=== PATIENT | male | born 1975 | race African-American/Black ===

== ENCOUNTER 2017-12-20 08:25 | Inpatient (IN) | payer OTHER ==
[2017-12-20 08:47] VITALS: BMI 23.9
--- NOTE | 2017-12-20 08:56 | HP ---
CIWA Score - CIWA Score Nausea/Vomitin Muscle Tremors: 3 Anxiety: 3 Agitation: 3 Paroxysmal Sweats: 2 Orientation: 0-Oriented Tacttile Disturbances: 2-Mild Itch/Numbness/Burn Auditory Disturbances: 2-Mild Harshness/Frighten Visual Disturbances: 2-Mild Sensitivity Headache: 2-Mild CIWA-Ar Total Score: 22 Admission ROS BHS - HPI Chief Complaint: I AM HERE TO STOP DRINKING ALCOHOL,COCAINE AND K2 Allergies/Adverse Reactions: Allergies Allergy/AdvReac Type Severity Reaction Status Date / Time No Known Allergies Allergy Verified 12/20/17 08:36 History of Present Illness: THIS 42 YEARS OLD BLACK MALE WITH ALCOHOL,COCAINE 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 DEPENDENCE.SEEKING DETOX,WITHDRAWAL SYMPTOM,LAST DETOX 07/26 [facility] NOT COMPLETED NO MAJOR MEDICAL PROBLEM NICOTINE DEPENDENCE NO SIGNIFICANT PERIOD OF SOBRIETY SEVERAL ADMISSIONS IN DETOX ANXIETY,DEPRESSION,INSOMNIA,PARANOID Exam Limitations: No Limitations - Ebola screening Have you traveled outside of the country in the last 21 days: No Have you been sick,other than usual withdrawal symptoms: No - Review of Systems Constitutional: Loss of Appetite, Malaise, Night Sweats, Changes in sleep, Weakness EENT: reports: Nose Congestion Respiratory: reports: No Symptoms reported Cardiac: reports: No Symptoms Reported GI: reports: Diarrhea, Nausea, Vomiting, Abdominal cramping : reports: No Symptoms Reported Musculoskeletal: reports: Back Pain, Muscle Pain Integumentary: reports: Dryness Neuro: reports: Headache, Tremors Endocrine: reports: No Symptoms Reported Hematology: reports: No Symptoms Reported Psychiatric: reports: Anxious, Depressed (INSOMNIA) Patient History - Patient Medical History Hx Anemia: No Hx Asthma: No Hx Chronic Obstructive Pulmonary Disease (COPD): No Hx Cancer: No Hx Cardiac Disorders: No Hx Hypertension: No Hx Hypercholesterolemia: No Hx Pacemaker: No HX Cerebrovascular Accident: No Hx Seizures: No Hx Dementia: No Hx Diabetes: No Hx Gastrointestinal Disorders: No Hx Liver Disease: No Hx Genitourinary Disorders: No Hx Sexually Transmitted Disorders: No Hx Renal Disease (ESRD): No Hx Thyroid Disease: No Hx Human Immunodeficiency Virus (HIV): No (LAST 07/26 ) Hx Hepatitis C: No Hx Depression: Yes (taking Abilify and trazodone ) Hx Suicide Attempt: Yes (Tried to overdose in 2009) Hx Schizophrenia: No Other Medical History: NO SUICIDAL,NO HOMICIDAL - Patient Surgical History Past Surgical History: No Hx Neurologic Surgery: No Hx Cataract Extraction: No Hx Cardiac Surgery: No Hx Lung Surgery: No Hx Breast Surgery: No Hx Breast Biopsy: No Hx Abdominal Surgery: No Hx Appendectomy: No Hx Cholecystectomy: No Hx Genitourinary Surgery: No Hx Section: No Hx Orthopedic Surgery: No Anesthesia Reaction: No - PPD History Previous Implant?: Yes Documented Results: Negative w/o proof Date: 01/12/16 Results: 0 mm PPD to be Administered?: Yes - Smoking Cessation Smoking history: Current every day smoker Have you smoked in the past 12 months: Yes Aproximately how many cigarettes per day: 20 Hx Chewing Tobacco Use: No Initiated information on smoking cessation: Yes 'Breaking Loose' booklet given: 12/20/17 - Substance & Tx. History Hx Alcohol Use: Yes Hx Substance Use: Yes Substance Use Type: Alcohol, Cocaine Hx Substance Use Treatment: Yes ([facility] 07/26 NOT COMPLETED) - Substances Abused Alcohol Route: Oral Frequency: Daily Amount used: LIQUOR- 2 PINTS VODKA Age of first use: 12 Date of Last Use: 12/19/17 Cocaine Route: Smoking Frequency: Daily Amount used: 40$ Age of first use: 13 Date of Last Use: 12/19/17 K2 Route: Smoking Frequency: Daily Amount used: 10$ Age of first use: 37 Date of Last Use: 12/19/17 Family Disease History - Family Disease History Family Disease History: Heart Disease: Father (), Mother (alcohol dependency ), Respiratory: Mother, Other: Mother Admission Physical Exam BHS - Vital Signs Vital Signs: Vital Signs - 24 hr 12/20/17 08:45 Temperature 96.7 F L Pulse Rate 81 Respiratory 20 Rate Blood Pressure 144/85 - Physical General Appearance: Yes: Moderate Distress, Tremorous, Irritable, Sweating, Anxious HEENTM: Yes: Normal ENT Inspection, Normocephalic, OUMAR, Pharynx Normal Respiratory: Yes: Lungs Clear, Normal Breath Sounds, No Respiratory Distress Neck: Yes: Within Normal Limits, Supple, Trachea in good position Breast: Yes: Within Normal Limits Cardiology: Yes: Within Normal Limits, Regular Rhythm, Regular Rate, S1, S2 Abdominal: Yes: Within Normal Limits, Normal Bowel Sounds, Non Tender, Flat, Soft Genitourinary: Yes: Within Normal Limits Back: Yes: Muscle Spasm Musculoskeletal: Yes: Back pain, Muscle Pain Extremities: Yes: Tremors Neurological: Yes: rock loader II-XII NML intact, Fully Oriented, Alert, Motor Strength 5/5 Integumentary: Yes: Within Normal Limits, Dry - Diagnostic (1) Alcohol dependence with uncomplicated withdrawal Current Visit: No Status: Chronic (2) Cocaine dependence with withdrawal Current Visit: No Status: Acute (3) Nicotine dependence Current Visit: No Status: Acute (4) Insomnia secondary to depression with anxiety Current Visit: Yes Status: Acute Cleared for Admission [facility] - Detox or Rehab [facility] Level of Care: Medically Managed Detox Regimen/Protocol: Librium [facility] Breath Alcohol Content Breath Alcohol Content: 0 Urine Drug Screen - Results Drug Screen Negative: No Urine Drug Screen Results: SERENA-Cocaine
[2017-12-20] MEDS ORDERED: ACETAMINOPHEN 325 MG TABLET (FP) PO PRN (09:06)
[2017-12-20] MEDS ORDERED: P-EPHED 60MG/TRIPROLIDI 2.5MG TABLET PO PRN (09:06)
[2017-12-20] MEDS ORDERED: NICOTINE POLACRILEX 4 MG GUM BUC PRN (09:06)
[2017-12-20] MEDS ORDERED: chlordiazePOXIDE HCL 25 MG CAPSULE PO PRN (09:06)
[2017-12-20] MEDS ORDERED: MAG HYDROX/AL HYDROX/SIMETH 30 ML UNIT-DOSE CUP PO PRN (09:06)
[2017-12-20] MEDS ORDERED: chlordiazePOXIDE HCL 25 MG CAPSULE PO ONE ×2 (09:06→12:00)
[2017-12-20] MEDS ORDERED: MENTHOL/PHENOL 1 EACH UD MM PRN (09:06)
[2017-12-20] MEDS ORDERED: LOPERAMIDE HCL 2 MG CAPSULE PO PRN (09:06)
[2017-12-20] MEDS ORDERED: guaiFENesin/D-METHORPHAN HB 10 ML UNIT-DOSE CUPS PO PRN (09:06)
[2017-12-20] MEDS ORDERED: hydrOXYzine PAMOATE 50 MG CAPSULE (FP) PO PRN (09:06)
[2017-12-20] MEDS ORDERED: MAGNESIUM CITRATE 300 ML BOTTLE PO PRN (09:06)
[2017-12-20] MEDS ORDERED: MAGNESIUM HYDROX 2400MG/30ML ORAL SUSPENSION 30 ML CUP PO PRN (09:06)
[2017-12-20] MEDS ORDERED: IBUPROFEN 400 MG TABLET (FP) PO PRN (09:06)
[2017-12-20] MEDS: NICOTINE 21 MG/24 HOURS TOPICAL PATCH TD SCH (12:03)
[2017-12-20] MEDS: PRENATAL VITAMINS W/ FOLIC ACID TABLET (FP) PO SCH (12:04)
[2017-12-20] MEDS: chlordiazePOXIDE HCL 25 MG CAPSULE PO SCH ×2 (17:42→22:31)
[2017-12-20 19:21] LABS: URINE APPEARANCE CLEAR; URINE BILIRUBIN NEGATIVE (NEGATIVE); URINE BLOOD NEGATIVE (NEGATIVE); URINE COLOR STRAW; URINE GLUCOSE (UA) NEGATIVE (NEGATIVE); URINE KETONE NEGATIVE (NEGATIVE); URINE LEUK ESTERASE NEGATIVE (NEGATIVE); URINE NITRITE NEGATIVE (NEGATIVE); URINE PROTEIN NEGATIVE (NEGATIVE); URINE UROBILINOGEN NEGATIVE mg/dL (0.2-1.0)
[2017-12-20] MEDS ORDERED: THIAMINE HCL 100 MG TABLET (FP) PO SCH (22:00)
[2017-12-21] MEDS: chlordiazePOXIDE HCL 25 MG CAPSULE PO SCH ×2 (05:51→11:09)
--- NOTE | 2017-12-21 07:32 | CONSULT ---
[facility] Psychiatric Consult - Data Date of interview: 12/21/17 Admission source: [facility] Identifying data: THIS 42 YEARS OLD BLACK MALE WITH ALCOHOL,COCAINE AND K2 DEPENDENCE.SEEKING DETOX, WITH PSYCHIATRIC HOSPITALIZATION HISTORY, INTOXICATED WITH: Alcohol, Cocaine, JK-2, Nicotine Substance Abuse History: Smoking Cessation. Smoking history: Current every day smoker. Have you smoked in the past 12 months: Yes. Aproximately how many cigarettes per day: 20. Hx Chewing Tobacco Use: No. Initiated information on smoking cessation: Yes. 'Breaking Loose' booklet given: 12/20/17. - Substance & Tx. History. Hx Alcohol Use: Yes. Hx Substance Use: Yes. Substance Use Type : Alcohol, Cocaine. Hx Substance Use Treatment: Yes ([facility] 07/26 NOT COMPLETED). - Substances Abused. Alcohol. Route: Oral. Frequency: Daily. Amount used: LIQUOR- 2 PINTS VODKA. Age of first use: 12. Date of Last Use: 12/19/17. Cocaine. Route: Smoking. Frequency: Daily. Amount used: 40$. Age of first use: 13. Date of Last Use: 12/19/17. K2. Route: Smoking. Frequency: Daily. Amount used: 10$. Age of first use: 37. Date of Last Use: 12/19/17 Medical History: Denioes any significant medical issues Psychiatric History: Patient reports history of depression and anxiety, with most recent posychiatric admission on 2018 at [facility] due to suicidal ideationl, current;y taking: Trazodone 100mg po qhs. Abilify 10mg poqd Physical/Sexual Abuse/Trauma History: Denies Additional Comment: Trazodone 100mg po qhs. Abilify 10mg poqd Mental Status Exam - Mental Status Exam Alert and Oriented to: Person Cognitive Function: Fair Patient Appearance: Unkempt Mood: Sad Affect: Flat Patient Behavior: Sedated Speech Pattern: Delayed Voice Loudness: Mildly Soft/Quiet Thought Process: Circumstantial Thought Disorder: Being Controlled Hallucinations: Denies Suicidal Ideation: Denies Homicidal Ideation: Denies Insight/Judgement: Fair Sleep: Difficulty falling asleep Appetite: Fair Muscle strength/Tone: Mild Hypotonicity Gait/Station: Shuffling Additional Comments: Trazodone 100mg po qhs. Abilify 10mg poqd Psychiatric Findings - Problem List ([place] 1, 2,3) (1) Insomnia secondary to depression with anxiety Current Visit: Yes Status: Acute (2) Alcohol dependence Current Visit: No Status: Acute (3) Cocaine dependence Current Visit: No Status: Acute (4) Cocaine dependence with withdrawal Current Visit: No Status: Acute (5) Nicotine dependence Current Visit: No Status: Acute (6) Substance induced mood disorder Current Visit: No Status: Acute (7) Alcohol dependence with uncomplicated withdrawal Current Visit: No Status: Chronic (8) Cocaine dependence, uncomplicated Current Visit: No Status: Chronic - Initial Treatment Plan Initial Treatment Plan: Trazodone 100mg po qhs. Abilify 10mg poqd
[2017-12-21] MEDS ORDERED: ARIPiprazole 10 MG TABLET PO SCH (10:00)
[2017-12-21 10:11] LABS: HEMATOCRIT 48.3 % (35.4-49); HEMOGLOBIN 16.1 GM/dL (11.7-16.9); MCH 34.9 pg (25.7-33.7); MCHC 33.4 g/dl (32.0-35.9); MEAN CELL VOLUME 104.4 fl (80-96); MEAN PLT VOLUME 9.8 fl (7.5-11.1); PLATELET COUNT 166 K/MM3 (134-434); RBC 4.62 M/mm3 (4.00-5.60); RDW 14.6 % (11.9-15.9); WHITE BLOOD COUNT 3.6 K/mm3 (4.0-10.0)
[2017-12-21 10:16] LABS: ALBUMIN 4.1 g/dl (3.4-5.0); ALK PHOS 64 U/L (45-117); ANION GAP 6 (8-16); BILIRUBIN,TOTAL 0.9 mg/dL (0.2-1.0); BLOOD UREA NITROGEN 9 mg/dL (7-18); CALCIUM 8.8 mg/dL (8.5-10.1); CHLORIDE 99 mmol/L (98-107); CO2 32 mmol/L (21-32); GLUCOSE,RANDOM 94 mg/dL (74-106); POTASSIUM 3.9 mmol/L (3.5-5.1); SGOT/AST 17 U/L (15-37); SGPT/ALT 27 U/L (12-78); SODIUM 137 mmol/L (136-145); TOT PROT 7.3 g/dl (6.4-8.2)
[2017-12-21 10:39] VITALS: BP 138/88; PULSE 99; TEMP 97.6
[2017-12-21] MEDS: NICOTINE 21 MG/24 HOURS TOPICAL PATCH TD SCH (11:08)
[2017-12-21] MEDS: PRENATAL VITAMINS W/ FOLIC ACID TABLET (FP) PO SCH (11:09)
--- NOTE | 2017-12-21 11:15 | PN ---
S CIWA - CIWA Score Nausea/Vomitin Muscle Tremors: 3 Anxiety: 3 Agitation: 3 Paroxysmal Sweats: 1-Minimal Palms Moist Orientation: 0-Oriented Tacttile Disturbances: 1-Very Mild Itch/Numbness Auditory Disturbances: 1-Very Mild Visual Disturbances: 0-None Headache: 2-Mild CIWA-Ar Total Score: 17 BHS Progress Note (SOAP) Subjective: ALERT,IRRITABLE,ANXIOUS,INTERRUPTED SLEEP,TREMOR Objective: 12/21/17 11:14 Vital Signs Temperature 97.6 F 12/21/17 10:39 Pulse Rate 99 H 12/21/17 10:39 Respiratory Rate 19 12/21/17 10:39 Blood Pressure 138/88 12/21/17 10:39 O2 Sat by Pulse Oximetry (%) EKG NSR,NORMAL ECG Laboratory Last Values WBC 3.6 K/mm3 (4.0-10.0) L D 12/21/17 07:00 RBC 4.62 M/mm3 (4.00-5.60) 12/21/17 07:00 Hgb 16.1 GM/dL (11.7-16.9) D 12/21/17 07:00 Hct 48.3 % (35.4-49) D 12/21/17 07:00 MCV 104.4 fl (80-96) H 12/21/17 07:00 MCH 34.9 pg (25.7-33.7) H 12/21/17 07:00 MCHC 33.4 g/dl (32.0-35.9) 12/21/17 07:00 RDW 14.6 % (11.9-15.9) 12/21/17 07:00 Plt Count 166 K/MM3 (134-434) 12/21/17 07:00 MPV 9.8 fl (7.5-11.1) 12/21/17 07:00 Sodium 137 mmol/L (136-145) 12/21/17 07:00 Potassium 3.9 mmol/L (3.5-5.1) 12/21/17 07:00 Chloride 99 mmol/L (98-107) 12/21/17 07:00 Carbon Dioxide 32 mmol/L (21-32) 12/21/17 07:00 Anion Gap 6 (8-16) L 12/21/17 07:00 BUN 9 mg/dL (7-18) D 12/21/17 07:00 Creatinine 1.0 mg/dL (0.7-1.3) D 12/21/17 07:00 Creat Clearance w eGFR > 60 (>60) 12/21/17 07:00 Random Glucose 94 mg/dL (74-106) D 12/21/17 07:00 Calcium 8.8 mg/dL (8.5-10.1) 12/21/17 07:00 Total Bilirubin 0.9 mg/dL (0.2-1.0) D 12/21/17 07:00 AST 17 U/L (15-37) D 12/21/17 07:00 ALT 27 U/L (12-78) 12/21/17 07:00 Alkaline Phosphatase 64 U/L (45-117) D 12/21/17 07:00 Total Protein 7.3 g/dl (6.4-8.2) 12/21/17 07:00 Albumin 4.1 g/dl (3.4-5.0) 12/21/17 07:00 Urine Color Straw 12/20/17 12:45 Urine Appearance Clear 12/20/17 12:45 Urine pH 7.0 (5.0-8.0) 12/20/17 12:45 Ur Specific [place] 1.004 (1.001-1.035) 12/20/17 12:45 Urine Protein Negative (NEGATIVE) 12/20/17 12:45 Urine Glucose (UA) Negative (NEGATIVE) 12/20/17 12:45 Urine Ketones Negative (NEGATIVE) 12/20/17 12:45 Urine Blood Negative (NEGATIVE) 12/20/17 12:45 Urine Nitrite Negative (NEGATIVE) 12/20/17 12:45 Urine Bilirubin Negative (NEGATIVE) 12/20/17 12:45 Urine Urobilinogen Negative mg/dL (0.2-1.0) 12/20/17 12:45 Ur Leukocyte Esterase Negative (NEGATIVE) 12/20/17 12:45 Assessment: 12/21/17 11:14 WITHDRAWAL SYMPTOM Plan: CONTINUE DETOX
--- NOTE | 2017-12-21 11:20 | DS ---
[facility] Detox Discharge Summary Admission Date: 12/20/17 Discharge Date: 12/21/17 - History Present History: Alcohol Dependence, Cocaine Dependence Additional Comments: PATIENT DID NOT WANT TO COMPLETE TREATMENT,REFUSED TO GIVE ANY REASON,SEEN BY COUNSELOR,SIGNED RELEASE AMA Pertinent Past History: NICOTINE DEPENDENCE INSOMNIA ANXIETY AND DEPRESSION - Physical Exam Results Vital Signs: Vital Signs Temperature 97.6 F 12/21/17 10:39 Pulse Rate 99 H 12/21/17 10:39 Respiratory Rate 19 12/21/17 10:39 Blood Pressure 138/88 12/21/17 10:39 O2 Sat by Pulse Oximetry (%) Pertinent Admission Physical Exam Findings: WITHDRAWAL SYMPTOM AND FINDING - Medication Discharge Medications: Ambulatory Orders Aripiprazole [Abilify -] 10 mg PO DAILY #30 tablet 12/21/17 traZODone HCL [Desyrel -] 100 mg PO HS #30 tablet 12/21/17 - Diagnosis (1) Alcohol dependence with uncomplicated withdrawal Current Visit: No Status: Chronic (2) Cocaine dependence with withdrawal Current Visit: No Status: Acute (3) Nicotine dependence Current Visit: No Status: Acute (4) Insomnia secondary to depression with anxiety Current Visit: Yes Status: Acute - AMA Did Patient Leave Against Medical Advice: Yes
[2017-12-21] MEDS ORDERED: chlordiazePOXIDE HCL 25 MG CAPSULE PO SCH (17:00)
[2017-12-21] MEDS ORDERED: traZODone HCL 100 MG TABLET (FP) PO SCH (22:00)
--- NOTE | 2017-12-21 23:34 | EKG ---
Test Reason : Blood Pressure : / mmHG Vent. Rate : 073 BPM Atrial Rate : 073 BPM P-R Int : 144 ms QRS Dur : 102 ms QT Int : 420 ms P-R-T Axes : 075 075 047 degrees QTc Int : 462 ms NORMAL SINUS RHYTHM NORMAL ECG NO PREVIOUS ECGS AVAILABLE Confirmed by ISELA BALLESTEROS MD ([id number]) on 12/21/2017 11:34:22 PM Referred By: Charanjit Garduno Confirmed By:ISELA BALLESTEROS MD
[2017-12-22] MEDS ORDERED: chlordiazePOXIDE 5 MG CAPSULE PO SCH (17:00)
[2017-12-23] MEDS ORDERED: chlordiazePOXIDE HCL 10 MG CAPSULE PO SCH (17:00)
== END 2017-12-21 11:41 | disposition left against medical advice (07) | DRG 770 ==
LOC: YASAS 08:25 → Y6N 10:19
PROVIDERS: ADMIT Internal Medicine; ATTEND Internal Medicine
PROC: HZ2ZZZZ Detoxification Services for Substance Abuse Treatment (ICD-10-PCS; principal; 2017-12-20)
DX: F10.230 Alcohol dependence with withdrawal, uncomplicated (principal); F14.23 Cocaine dependence with withdrawal; F12.20 Cannabis dependence, uncomplicated; F51.05 Insomnia due to other mental disorder; F19.24 Other psychoactive substance dependence with psychoactive substance-induced mood disorder; Z91.5 Personal history of self-harm
CPT/HCPCS: 36415; 80053; 81003; 85027; 86593; 87389; 93005; 93010